=== PATIENT | female | born 1965 | race Caucasian/White ===

== ENCOUNTER → 2023-09-28 12:55 | Outpatient (REF) | payer OTHER, SELFPAY | LOC: DHCBC HW 12:55 | PROVIDERS: ATTENDING PHYSICIAN Nurse Practitioner | DX: I25.10 Atherosclerotic heart disease of native coronary artery without angina pectoris (principal) | CPT/HCPCS: 93306 ==

== ENCOUNTER → 2023-10-05 11:01 | Outpatient (REF) | payer OTHER, SELFPAY | LOC: DHCBC/DCA 11:01 | PROVIDERS: ATTENDING PHYSICIAN Nurse Practitioner; FAMILY PHYSICIAN Physician Assistant Medical | DX: I25.10 Atherosclerotic heart disease of native coronary artery without angina pectoris (principal) | CPT/HCPCS: 78452; 93017; A9500 ==

== ENCOUNTER 2024-03-18 22:52 | Emergency (ER) | payer OTHER, SELFPAY ==
[2024-03-18 22:57] VITALS: BP 150/67
--- NOTE | 2024-03-18 23:55 | ED.GENMED ---
History of Present Illness
General
Chief Complaint: Cold/Flu/URI Symptoms
Source: patient
Exam Limitations: none
Time Seen by Provider: 03/18/24 23:28
History of Present Illness
History of Present Illness:
58-year-old female presents with persistent cough for the past month. She is initially thought to have pneumonia by her family doctor and finished a weeks worth of Augmentin. Her symptoms did not improve she ended up getting an x-ray at an urgent
care which was negative but was diagnosed with bronchitis. She then started prednisone and inhaler. She does not feel these are helping. She notes a cough that is worse at night. She tries to prop her self up. She denies swelling in her legs or
calf pain. No chest pain. Initially when she first started getting sick she did have some blood in her sputum. She was never smoker. She has history of cardiac disease with a stent. No known sick contacts. No other complaints at this time
Past History
Past History
ED Past Medical History: Arrthythmia (Paroxysmal supraventricular tachycardia), CAD, HTN, Hypercholesterolemia, Psychiatric (ADD, anxiety) and Other (Anemia, migraine headaches)
ED Past Surgical History: Cardiac (PTCA with stent to mid April 2020) and Orthopedic
Social History
Tobacco: Non-smoker
Alcohol: Occasional
Living: with family
Employment: Employed ([employer])
Family History
Family History: Other (Father with [place], mother with bladder cancer)
Phy Exam
Physical Exam
Physical Exam:
General: Well-appearing female no acute respiratory distress
HEENT: Normocephalic atraumatic
Heart: Regular rate and rhythm
Lungs: Clear no wheeze positive dry cough throughout the exam
Extremities: No cyanosis or edema
Skin: Warm no rash
Course
Orders/Labs/Results
Orders:
Orders
03/18/24 23:45
Ipratropium/Albuterol Sulfate [Duoneb] 3 ml INH R NOW STA
03/18/24 23:57
Complete Blood Count/With Diff Urgent
Comprehensive Metabolic Panel Urgent
NT-proBNP Urgent
03/19/24 00:19
Acetaminophen [Tylenol] 650 mg .ROUTE .STK-MED ONE
03/19/24 00:20
Acetaminophen [Tylenol] 650 mg PO NOW STA
03/19/24 00:47
CT Chest Pe Study Urgent
Reason For Exam: cough, hemoptysis
Abnormal Lab Results
03/18/24
23:57
Hct 35.0 L %
(37.0-47.0)
Abs Immat Gran (auto) 0.1 H 10^3/uL
(0-0.05)
Immature Gran % 0.9 H %
(0-0.5)
03/18/24 23:57
03/18/24 23:57
Vital Signs
Initial and Last Documented VS:
Initial Vital Signs
Temp Pulse Resp BP Pulse Ox
97.9 F 68 19 150/67 96
03/18/24 22:57 03/18/24 22:57 03/18/24 22:57 03/18/24 22:57 03/18/24 22:57
Last Documented Vital Signs
Temp Pulse Resp BP Pulse Ox
97.9 F 68 19 123/55 95
03/18/24 22:57 03/18/24 22:57 03/18/24 22:57 03/19/24 01:12 03/19/24 01:30
MDM/Problems Addressed
Differential Diagnosis Includes:
Persistent cough. Initially thought to have pneumonia then bronchitis. She is not improving after antibiotics steroid and inhaler. She did describe initially some hemoptysis. Question PE versus CHF versus reflux versuspost bronchitic cough.
Will try DuoNeb here. CT of chest ordered. Labs pending including BNP
*Critical Care Note
Total Time (30-74mins, 75-104mins- exclusive of procedures): Not Applicable
Update Note
Update Note:
. BNP undetectable. CT chest negative for acute finding. Patient notes minimal relief with DuoNeb. I suspect postinfectious cough. She has prescribed cough medicine with codeine, Tessalon and prednisone and has been on antibiotics. Do not see
any different antibiotic would be helpful. Recommended hydration and rest. Recommended follow-up with family doctor or mash processing operator if persists. No indication for admission
ED Attending Note
-
Portions of this chart may have been created with voice recognition software.� Occasional wrong word or��sound alike� substitutions may have occurred due to the inherent limitations of voice recognition software.
Discharge Plan
Departure
Patient Disposition: Home (Routine Discharge)
Date of Disposition: 03/19/24
Time of Disposition: 02:12
Patient with high blood pressure during this ER visit?: No
Discharge Problem:
Cough
Instructions: Cough, Adult ED
Prescriptions:
No Action
trazodone 100 MG tablet
100 mg PO HS
aspirin 81 MG tablet,delayed release (DR/EC)
81 mg PO DAILY Qty: 1 0RF
magnesium 200 MG tablet
1 tab PO DAILY
L.acidoph, paracasei,B. lactis 1 EACH capsule
1 ea PO DAILY
atorvastatin 40 MG tablet
40 mg PO HS
Cbd
1 dose PO PRN PRN (Reason: sleep)
collagen
1 packet PO DAILY
Referrals:
Anais Mcfadden PA-C [Family Provider] -
Activity Restrictions/Additional Instructions:
Continue with cough medicine. Please return here for worsening symptoms otherwise follow-up with your family doctor or pulmonology
Interventions
Interventions:
*Risk Screen - Suicide Last Done: 03/18/24 22:57
*General Assessment Last Done: 03/18/24 22:57
*Neglect/Abuse Screening Last Done: 03/18/24 22:57
*ED COVID-19 Vaccine History Last Done: 03/18/24 22:57
ED- Pulmonary Assessment Last Done: 03/18/24 23:43
Discharge Date and Time
Print Language: SLOVENIAN
[2024-03-19] MEDS: DUONEB 3 ML INH (00:04)
[2024-03-19 00:06] VITALS: BP 129/64
[2024-03-19 00:07] LABS: % Basophils 0.5 % (0-2); % Eosinophils 1.4 % (0-6); % Immature Granulocytes 0.9 % (0-0.5); % Lymphocytes 32.8 % (20.5-51.1); % Monocytes 8.3 % (1.7-9.3); % Neutrophils 56.1 % (42.2-75.2); Absolute Eosinophils 0.1 10^3/uL (0-0.7); Absolute Immature Granulocytes 0.1 10^3/uL (0-0.05); Absolute Lymphocytes 2.5 10^3/uL (1.2-3.4); Absolute Monocytes 0.6 10^3/uL (0.1-0.6); Absolute Neutrophils 4.3 10^3/uL (1.4-6.5); Hemoglobin 12.5 g/dL (12.0-16.0); Mean Corp Hgb Conc. 35.7 g/dL (33.0-37.0); Mean Corpuscular Hgb 29.7 pg (27.0-31.0); Mean Corpuscular Volume 83.1 fL (81.0-99.0); Nucleated Red Blood Cells % 0 %; Platelet Count 184 10^3/uL (130-400); Red Blood Cell Count 4.21 10^6/uL (4.20-5.40); Red Cell Dist. Width 13.2 % (11.5-14.5); White Blood Cell Count 7.7 10^3/uL (4.8-10.8)
[2024-03-19 00:18] LABS: ALT (SGPT) 18 U/L (0-35); AST (SGOT) 30 U/L (14-36); Albumin 4.3 g/dl (3.5-5.0); Alkaline Phosphatase 73 U/L (38-126); Blood Urea Nitrogen 17 mg/dl (7-17); Calcium 9.7 mg/dl (8.4-10.2); Carbon Dioxide 28 mmol/L (22-30); Chloride 101 mmol/L (98-107); Glucose 95 mg/dl (70-99); Potassium 3.6 mmol/L (3.5-5.1); Sodium 136 mmol/L (135-145); Total Bilirubin 0.8 mg/dl (0.2-1.3); Total Protein 6.5 g/dl (6.3-8.2); eGFR > 60.00
[2024-03-19] MEDS: TYLENOL 650 MG PO (00:20)
[2024-03-19 00:27] LABS: NT-proBNP 53.6 pg/ml
[2024-03-19 01:12] VITALS: BP 123/55
== END 2024-03-19 02:22 | disposition home or self-care (01) ==
LOC: EMR 22:52
PROVIDERS: Physician Assistant; EMERGENCY PHYSICIAN Emergency Medicine; FAMILY PHYSICIAN Physician Assistant Medical
DX: R05.9 Cough, unspecified (principal)
CPT/HCPCS: 99284; 94640; 71275; 80053; 83880; 85025; Q9967

== ENCOUNTER → 2024-09-19 10:17 | Outpatient (REF) | payer OTHER, SELFPAY | LOC: RCS 10:17 | PROVIDERS: ATTENDING PHYSICIAN Nurse Practitioner; FAMILY PHYSICIAN Physician Assistant Medical | DX: I35.1 Nonrheumatic aortic (valve) insufficiency (principal) | CPT/HCPCS: 93306 ==

== ENCOUNTER 2024-09-25 17:39 | Emergency (ER) | payer OTHER, SELFPAY ==
[2024-09-25 17:45] VITALS: BP 103/49
[2024-09-25 18:23] LABS: ALT (SGPT) 15 U/L (0-35); AST (SGOT) 23 U/L (14-36); Alkaline Phosphatase 75 U/L (38-126); Blood Urea Nitrogen 16 mg/dl (7-17); Calcium 9.5 mg/dl (8.4-10.2); Carbon Dioxide 31 mmol/L (22-30); Chloride 106 mmol/L (98-107); Glucose 89 mg/dl (70-99); Lipase 88 U/L (23-300); Sodium 140 mmol/L (135-145); Total Bilirubin 0.5 mg/dl (0.2-1.3); Total Protein 6.3 g/dl (6.3-8.2); eGFR > 60.00
[2024-09-25 18:35] LABS: % Basophils 0.7 % (0-2); % Eosinophils 2.4 % (0-6); % Immature Granulocytes 0.2 % (0-0.5); % Neutrophils 57.7 % (42.2-75.2); Absolute Eosinophils 0.1 10^3/uL (0-0.7); Absolute Lymphocytes 1.9 10^3/uL (1.2-3.4); Absolute Monocytes 0.4 10^3/uL (0.1-0.6); Absolute Neutrophils 3.4 10^3/uL (1.4-6.5); Hemoglobin 12.4 g/dL (12.0-16.0); Mean Corp Hgb Conc. 35.4 g/dL (33.0-37.0); Mean Corpuscular Hgb 30.5 pg (27.0-31.0); Mean Corpuscular Volume 86.2 fL (81.0-99.0); Mean Platelet Volume 9.2 fL (7.4-10.4); Nucleated Red Blood Cells % 0 %; Platelet Count 182 10^3/uL (130-400); Red Blood Cell Count 4.06 10^6/uL (4.20-5.40); White Blood Cell Count 5.9 10^3/uL (4.8-10.8)
--- NOTE | 2024-09-25 19:13 | ED.GENMED ---
History of Present Illness
General
Chief Complaint: Abdominal Pain
Time Seen by Provider: 09/25/24 19:13
History of Present Illness
History of Present Illness:
TIME OF INITIAL ENCOUNTER: 7:15 PM
HPI: She has been having intermittent episodes of right upper quadrant pain for the past few days. This is associated with increased belching. She also voiced concern because she was diagnosed with a large hepatic cyst in the past and was told
that it 'recently doubled in size' (of note, I did review records and in 2019 she had a 6.6 cm hepatic cyst and last March it was 7.6 cm). The pain comes and goes. She has not had fevers.
EXAM:
GENERAL: Well appearing in no distress
HEENT: Moist oral mucosa
CARDIOVASCULAR: No murmurs, normal heart rate, regular rhythm, No chest wall tenderness
PULMONARY: No respiratory distress, breath sounds are clear and equal
ABDOMEN: Soft with no peritoneal signs, minimal right upper quadrant tenderness, she seemed to have some increased discomfort when she flexed the torso forward
NEUROLOGIC: Excellent strength all extremities, no coordination deficits
PSYCHIATRIC: Appropriate mental status, normal insight and judgement
EXTREMITIES: Nontender, no edema, moves all extremities equally
SKIN: No rash, no lesions
NUMBER AND COMPLEXITY OF PROBLEMS ADDRESSED AT THE ENCOUNTER
� Chronic conditions affecting care: CAD with stent, hyperlipidemia
� Acute Exacerbation and/or Progression of Chronic Illness:
� Differential Diagnosis includes: Biliary colic, cholecystitis, ruptured hepatic cyst, no evidence for pancreatitis
AMOUNT AND/OR COMPLEXITY OF DATA TO BE REVIEWED AND ANALYZED
� I performed an independent evaluation of and my interpretation is:
EKG: Sinus 54, normal axis, no acute ST abnormality
CT:
X-rays:
Laboratory Studies: White count and hemoglobin are normal, chemistries and lipase are normal.
Other: Ultrasound imaging reviewed
� Review of other/old records: CT from 03/19/2024 showed a 7.6 cm hepatic cyst and there was also hemangioma as well.
� Clinical information was obtained by an independent historian: I spoke to the at bedside
� Prescriptions/Medications Considered but not given: The patient declined analgesia and feels well-hydrated therefore no IV was started
� Further testing considered but not performed:
RISK OF COMPLICATIONS AND/OR MORBIDITY OR MORTALITY OF PATIENT MANAGEMENT
� Social determinants of health affecting care: Lives at home
� Discussion with other providers:
� Escalation of care including admission/observation vs risk of discharge considered: The patient presents with intermittent episodes of right upper quadrant pain. She does have some mild tenderness but white count and LFTs
including lipase are normal. EKG unremarkable. Ultrasound imaging obtained.
ANY OTHER UPDATES:
10:30 PM: Ultrasound imaging relatively unremarkable. I did inform patient that the radiologist suggested getting an MRI of the liver however the size of the liver lesion is comparable to what it was in March.
Past History
Past History
ED Past Medical History: Arrthythmia (Paroxysmal supraventricular tachycardia), CAD, HTN, Hypercholesterolemia, Psychiatric (ADD, anxiety) and Other (Anemia, migraine headaches)
ED Past Surgical History: Cardiac (PTCA with stent to mid LAD April 2020) and Orthopedic
Social History
Tobacco: Non-smoker
Alcohol: Occasional
Living: with family
Employment: Employed ([employer])
Family History
Family History: Other (Father with [place], mother with bladder cancer)
Phy Exam
Physical Exam
Physical Exam:
See HPI
Course
Orders/Labs/Results
Orders:
Orders
09/25/24 17:50
Electrocardiogram (*1) Urgent
Reason for Study: Abdominal Pain
09/25/24 17:51
EKG- Treatment ONCE
09/25/24 18:01
Complete Blood Count/With Diff Urgent
Comprehensive Metabolic Panel Urgent
Lipase Urgent
09/25/24 19:20
US Abdomen Complete/Upper Urgent
Comment:
Reason For Exam: RUQ intermittent pain eval stone; known liver cyst
Abnormal Lab Results
09/25/24
18:01
RBC 4.06 L 10^6/uL
(4.20-5.40)
Hct 35.0 L %
(37.0-47.0)
Carbon Dioxide 31 H mmol/L
(22-30)
09/25/24 18:01
09/25/24 18:01
Vital Signs
Initial and Last Documented VS:
Initial Vital Signs
Temp Pulse Resp BP Pulse Ox
36.4 C 53 18 103/49 98
09/25/24 17:45 09/25/24 17:45 09/25/24 17:45 09/25/24 17:45 09/25/24 17:45
Last Documented Vital Signs
Temp Pulse Resp BP Pulse Ox
36.4 C 54 18 126/61 98
09/25/24 17:45 09/25/24 22:32 09/25/24 22:32 09/25/24 22:32 09/25/24 22:32
*Critical Care Note
Total Time (30-74mins, 75-104mins- exclusive of procedures): Not Applicable
ED Attending Note
-
Portions of this chart may have been created with voice recognition software.� Occasional wrong word or��sound alike� substitutions may have occurred due to the inherent limitations of voice recognition software.
Discharge Plan
Departure
Patient Disposition: Home (Routine Discharge)
Date of Disposition: 09/25/24
Time of Disposition: 22:34
Patient with high blood pressure during this ER visit?: Yes
Discharge Problem:
Abdominal pain
Instructions: Abdominal Pain, BLOOD PRESSURE
Prescriptions:
No Action
trazodone 100 MG tablet
100 mg PO HS
aspirin 81 MG tablet,delayed release (DR/EC)
81 mg PO DAILY Qty: 1 0RF
magnesium 200 MG tablet
1 tab PO DAILY
Tonya,paracasei,B.animalis 1 EACH capsule
1 ea PO DAILY
atorvastatin 40 MG tablet
40 mg PO HS
Cbd
1 dose PO PRN PRN (Reason: sleep)
collagen
1 packet PO DAILY
Referrals:
Anais Mcfadden PA-C [Family Provider] -
Van Lezama MD [Active] - Next open appointment
Activity Restrictions/Additional Instructions:
MRI 2019: 6.7cm cyst; 6.0cm lesion consistent with hemangioma
CT 2023: 7.6cm cyst, lesion 6.0cm
US 2024: 7.7cm cyst, 4.6cm lesion; also tonight, there were no signs of gallbladder infection or gallstones
However, the radiologist said the 'Recommend MRI of the Abdomen for more complete evaluation of presumed right lobe hepatic atypical hemangioma in light of apparent slight increase in size (other hepatic masses cannot be entirely excluded) and also
recommend MRI of the Abdomen for evaluation of the pancreas, obscured on this study most likely by overlying bowel gas.' - however, it appears to me that it was reported that the lesion that could be a hemangioma was actually as large that time.
I have given you the contact information for a local GI doctor as well.
Interventions
Interventions:
*Risk Screen - Suicide Last Done: 09/25/24 17:45
*General Assessment Last Done: 09/25/24 17:45
*Neglect/Abuse Screening Last Done: 09/25/24 17:45
*ED- Fall Risk Assessment Last Done: 09/25/24 19:23
*ED COVID-19 Vaccine History Last Done: 09/25/24 19:23
WK-Udhbmo-Cqwxddwuaf Assessment Last Done: 09/25/24 19:24
Discharge Date and Time
Print Language: FRENCH
[2024-09-25 19:21] VITALS: BP 136/61
[2024-09-25 21:19] VITALS: BP 131/72; BMI 25.3
[2024-09-25 22:32] VITALS: BP 126/61
== END 2024-09-25 22:55 | disposition home or self-care (01) ==
LOC: EMR 17:39
PROVIDERS: Emergency Medicine; EMERGENCY PHYSICIAN Emergency Medicine; FAMILY PHYSICIAN Physician Assistant Medical
DX: R10.11 Right upper quadrant pain (principal); K76.89 Other specified diseases of liver; E78.00 Pure hypercholesterolemia, unspecified; I10 Essential (primary) hypertension; I25.10 Atherosclerotic heart disease of native coronary artery without angina pectoris; Z95.5 Presence of coronary angioplasty implant and graft
CPT/HCPCS: 99284; 76700; 80053; 83690; 85025; 93005

== ENCOUNTER → 2024-09-26 08:10 | Outpatient (REF) | payer OTHER, SELFPAY | LOC: HWRCS 08:10 | PROVIDERS: ATTENDING PHYSICIAN Nurse Practitioner; FAMILY PHYSICIAN Physician Assistant Medical | DX: I25.10 Atherosclerotic heart disease of native coronary artery without angina pectoris (principal) | CPT/HCPCS: 78452; 93017; A9500 ==

== ENCOUNTER → 2025-01-11 11:13 | Outpatient (REF) | payer OTHER, SELFPAY | LOC: DHSLP 11:13 | PROVIDERS: ATTENDING PHYSICIAN Internal Medicine Critical Care Medicine; FAMILY PHYSICIAN Physician Assistant Medical | DX: G47.30 Sleep apnea, unspecified (principal); R06.83 Snoring | CPT/HCPCS: 95800 ==

== ENCOUNTER 2025-03-08 09:57 | Day surgery (SDC) | payer OTHER, SELFPAY ==
[2025-03-08] VITALS (20 sets, daily range): BP systolic 93–121; BP diastolic 45–93; BMI 25.2
--- NOTE | 2025-03-08 12:25 | ITS.CL.ABL ---
Documentation Spec - Ablation
Ablation
Procedure Report:
Supra-ventricular tachycardia ablation:
Ms. Breaux is a very pleasant 59 yr old woman with recurrent presyncope and hx of atrial tachycardia and CAD s/p PCI to LAD with no ischemia noted on stress test had non-sustained VT noted presented for EP study with VT induction and SVT ablation.
Date of the Procedure:
03/08/2025
Indications:
Highly symptomatic atrial tachycardia and presyncope with non-sustained ventricular tachycardia.
Pre-Operative Diagnosis:
Atrial tachycardia, and non-sustained ventricular tachycardia.
Post-Operative Diagnosis:
Atrial tachycardia, and non-sustained ventricular tachycardia.
Procedure Performed:
Electrophysiology study with arrhythmia induction.
Atrial tachycardia ablation with foci at mid [place] Terminalis and at the floor of the right atrium and at the anterior wall of the right atrium
Performing Physician:
Juancho Aguayo MD
Assistants:
EP staff
Anesthesia:
See anesthesia records
Detailed Description of the Procedure:
Written informed consent was obtained from the patient after a full explanation of the risks and benefits of the procedure including the risks of sedation and anesthesia.
The patient was brought to the electrophysiology laboratory in stable condition in fasting state. Continuous electrocardiographic and hemodynamic monitoring was initiated.
The initial rhythm was normal sinus rhythm.
The procedure site was meticulously prepared with surgical scrub and allowed to dry with no pooling. Sterile draping was applied to cover the procedure site. The image intensifier was draped with sterile bag and positioned over the patient.
After infusion of local anesthetic, vascular access was obtained under ultrasound guidance and sheaths were placed over guide wire as detailed below.
Sheath and Catheter Placement:
In the right femoral vein, an 8-Thai sheath was placed for use during the ablation procedure. A second 7-Thai sheath was placed through which a decapolar catheter was placed in the coronary sinus (CS) for left atrial stimulation and mapping..
The following catheters / sheaths were placed
Sheaths:
��������� 8Fr in right femoral vein � upgraded to Agilis sheath.
��������� 6Fr in the right femoral vein
��������� 6Fr in the right femoral vein
Catheters:
��������� Biosense Doyle 4mm non-irrigated NAVISTART bidirectional ablation catheter - at locations of HRA, RV, CS and His.
��������� Penta ray catheter - at locations of RA, HIS and CS
��������� 6Fr Quad Torito catheter at HRA and RV
EP study:
A full EP study was done.
Baseline intervals (milliseconds):
PP interval (baseline cycle length): 708
P wave duration:101
MO interval:122
QRS duration: 90
QT interval: 426
�
P onset to HRA: 0
P onset to AVJ: 42
AH interval: 45
His duration: 12
HV interval: 40
�
Normal sinus node
Normal AV node with decremental conduction noted.
AV node Wenckebach noted at 470 msec.
The AVN ERP was was difficult to assess due to atrial ectopy and AT. Decision was done to obtained detail study after the abaltion.
Infrequent PACs noted. The PACs were mapped.
�
Ventricular Function:
Single ventricular extrastimuli were delivered following drive train of 600 msec the ventricular ERP was determined 220 msec. The ventricular electrical functions are within acceptable range.
Para-Hisian pacing:
The proximal CS was noted in the RA and the conduction from the RVa showed possible VA pathway and the Para-Hisian pacing was attempted. The high voltage captured the His with narrow QRS and VA time was 143 msec. The low voltage captured the RV with
wide QRS and the VA time was 202 msec. This is a pranay response and septal accessory pathway was ruled out.�
Arrhythmia Induction:
Programmed stimulation including single, double and triple extrastimuli were delivered from the RVa. The burst pacing from the RVa was also attempted. The RVa was paced as per MUSTT protocol with no arrhythmia induced at drive train of 600 with S1,
S2 and S3.
There was no arrhythmia induced with aggressive induction maneuvers.
No sustained arrhythmia was inducible.
Electroanatomic mapping (EAM):
Electroanatomic mapping (EAM) of the right atrium was performed using [id number] using 4mm NAVISTART ablation catheter. The EAM of the PACs were obtained.
The predominant PACs were from the right atrium and were mapped. The origin appeared to be coming from the RA lateral wall at the inferior [place] Terminalis.
Burst pacing from the RA, and the prox CS and mid CS were able to induce atria tachycardia that was short lived and not sustained. The entrainment maneuvers could not be performed. The decision was made to map the RA after the induction after
stabilizing the initial wobble. The induced AT was 440 msec in cycle length. It was localized to the mid [place] location on the lateral wall of the RA.
The PACs were identified at the inferior [place] and at the anterior wall of the RA.
Atrial tachycardia Ablation:
Atrial tachycardia # 1:
Radiofrequency ablation was performed using a 4mm non-irrigated NAVISTART bidirectional ablation catheter. The ablation catheter was placed at the best unipolar location and ablation was done using 40Watts with 60 Degree temp for 30 seconds. The
ablation resulted in excellent drop in impedance. The ablation in the mid [place] location was done first and it induced multiple PACs from the mid to inferior [place] location. Further consolidated lesions were made around the area and PACs subsided.
Ablation # 2: PAC ablation:
The anterior wall of the RA adjacent to the mid [place] location was identified as a potential focus and was ablated crating a triangle of ablation at mid [place] to the floor and to the anterior wall.
Full EP study was done at the end of the case.
Post ablation HV interval was unchanged at 40 msec
The post ablation AV Pranay ERP was 600/270 msec.
Procedure End
Following the completion of the EP study, catheters were removed.� The sheaths were removed and hemostasis achieved with manual compression.
Estimated Blood loss:
<5 cc
Specimens Removed:
None.
Implants / Devices:
None
Urine output:
None
Packs / Drains/ Tubes:
None
Instrument / Sponge Count Correct:
Yes
Fluoro time:
0
Complications of the Procedure:
None
Condition of Patient at Time of Transfer:
Hemodynamically stable with no neurological or vascular compromise.
Summary:
Successful Atrial tachycardia ablation with foci at mid [place] Terminalis and at the floor of the right atrium and at the anterior wall of the right atrium
.
== END 2025-03-08 17:20 | disposition home or self-care (01) ==
LOC: CATH 09:57
PROVIDERS: ATTENDING PHYSICIAN Internal Medicine Cardiovascular Disease; FAMILY PHYSICIAN Physician Assistant Medical; OTHER PHYSICIAN Internal Medicine
DX: I47.10 Supraventricular tachycardia, unspecified (principal); R55 Syncope and collapse; I47.19 Other supraventricular tachycardia; I25.10 Atherosclerotic heart disease of native coronary artery without angina pectoris; Z95.5 Presence of coronary angioplasty implant and graft
CPT/HCPCS: C1732; C1730; C1894; C1766; C1892; 93005; 93653